=== PATIENT | male | born 1965 | race Caucasian/White ===

== ENCOUNTER 2017-03-28 06:58 | Day surgery (SDC) | payer BC, OTHER ==
[~2017-03-28] VITALS: Ht 172.7 cm; Wt 103.9 kg
[~2017-03-28 06:58] MED LIST: AMBIEN10 M1 PO; AMITRIPTYLINE H10 MG PO; COLACE100 MG PO; DURAGESIC50 MCG TD; FERROUS SULFAT325 MG PO; KADIAN30 MG PO; KADIAN60 MG PO; MOBIC15 MG PO; MOBIC7.5 MG PO; MORPHABOND ER15 MG PO; OXYCODONE HCL15 MG PO; OXYCODONE HCL20 M1 PO; OXYCODONE-ACET1 EACH PO; OXYCODONE5 MG PO; PREVALITE POWD231 GM PO; PRINIVIL40 MG PO; PROMETHAZINE HC25 M1 PO; TUMS SMOOTHIES300 MG PO; UNISOM50 MG PO; XARELTO10 MG PO; ZESTRIL40 MG PO; [UNRECOGNIZED DRUG - OTHER] MC
== END 2017-03-28 08:59 | disposition home or self-care (01) ==
LOC: PAIN 06:58 → SDC 07:45 → PAIN 07:45
PROC: 015B3ZZ Destruction of Lumbar Nerve, Percutaneous Approach (ICD-10-PCS; principal; 2017-03-28)
DX: M47.816 Spondylosis without myelopathy or radiculopathy, lumbar region (principal); F41.9 Anxiety disorder, unspecified; G89.29 Other chronic pain; M43.06 Spondylolysis, lumbar region; M79.1 Myalgia; I10 Essential (primary) hypertension; M51.26 Other intervertebral disc displacement, lumbar region; R26.9 Unspecified abnormalities of gait and mobility; K44.9 Diaphragmatic hernia without obstruction or gangrene; E78.5 Hyperlipidemia, unspecified; E66.9 Obesity, unspecified; Z68.35 Body mass index [BMI] 35.0-35.9, adult
CPT/HCPCS: J1030; J2250; J3010; S0020

== ENCOUNTER 2017-04-04 06:59 | Day surgery (SDC) | payer BC, OTHER ==
[~2017-04-04] VITALS: Ht 172.7 cm; Wt 103.9 kg
== END 2017-04-04 09:14 | disposition home or self-care (01) ==
LOC: PAIN 06:59 → SDC 07:45 → PAIN 07:45
PROC: 015B3ZZ Destruction of Lumbar Nerve, Percutaneous Approach (ICD-10-PCS; principal; 2017-04-04)
DX: M47.816 Spondylosis without myelopathy or radiculopathy, lumbar region (principal); F41.9 Anxiety disorder, unspecified; G89.29 Other chronic pain; M17.11 Unilateral primary osteoarthritis, right knee; M43.06 Spondylolysis, lumbar region; M54.5 Low back pain; M79.1 Myalgia; I10 Essential (primary) hypertension; R26.9 Unspecified abnormalities of gait and mobility; K44.9 Diaphragmatic hernia without obstruction or gangrene; E78.5 Hyperlipidemia, unspecified; E66.9 Obesity, unspecified; Z68.35 Body mass index [BMI] 35.0-35.9, adult; Q05.7 Lumbar spina bifida without hydrocephalus; Z87.891 Personal history of nicotine dependence
CPT/HCPCS: J1030; J2250; J3010; S0020

== ENCOUNTER 2017-04-21 15:57 | Emergency (ER) | payer BC, OTHER ==
[~2017-04-21] VITALS: Ht 172.7 cm; Wt 101.0 kg
[2017-04-21 16:33] LABS: HEMATOCRIT 45.5 % (38.0-50.0); MCH 30.9 PG (29.0-34.0); MCHC 34.5 G/DL (30.0-36.0); MCV 89.6 FL (86-99); MEAN PLAT.VOLUME 10.2 uM^3 (9.0-12.4); PLATELET COUNT 232 K/uL (156-360); RBC DIS.WIDTH-CV 12.9 % (11.8-14.6); RBC DIS.WIDTH-SD 42.5 % (39-53); RED BLOOD COUNT 5.08 M/uL (4.00-5.50); WHITE BLOOD COUNT 8.6 K/uL (4.1-10.2)
[2017-04-21 16:45] LABS: CHLORIDE 111 mEq/L (99-109); POTASSIUM 4.3 mEq/L (3.7-5.4); SODIUM 142 mEq/L (136-147)
[2017-04-21 16:47] LABS: GLUCOSE 104 mg/dL (70-99)
[2017-04-21 16:48] LABS: ANION GAP 8 MEQ/L (2-14)
[2017-04-21 16:50] LABS: GFR ESTIMATE (CALCULATED) > 59 mL/min/
[2017-04-21 16:51] LABS: UREA NITROGEN (BUN) 16 mg/dL (9-23)
[2017-04-21 17:01] LABS: TROP-I INTERPRETATION NEGATIVE; TROPONIN-I < 0.01 ng/mL (0.0-0.30)
[2017-04-21 20:20] LABS: TROP-I INTERPRETATION NEGATIVE; TROPONIN-I < 0.01 ng/mL (0.0-0.30)
[2017-04-21] MEDS ORDERED: BENTYL20 MG PO (20:55)
[2017-04-21] MEDS ORDERED: ZANTAC150 MG PO (20:55)
[2017-04-21] MEDS ORDERED: OMEPRAZOLE20 MG PO (20:56)
[2017-04-21 21:05] VITALS: BP 135/85
== END 2017-04-21 21:07 | disposition home or self-care (01) ==
LOC: EME 15:57
PROVIDERS: Nurse Practitioner Family
DX: K44.9 Diaphragmatic hernia without obstruction or gangrene (principal); R10.13 Epigastric pain; R07.89 Other chest pain; K21.9 Gastro-esophageal reflux disease without esophagitis; Z87.891 Personal history of nicotine dependence
CPT/HCPCS: 71020; 74020; 80048; 84484; 85027; 93005; 99281; 99284

== ENCOUNTER 2017-12-03 14:29 | Emergency (ER) | payer OTHER ==
[~2017-12-03] VITALS: Ht 172.7 cm; Wt 105.9 kg
[~2017-12-03 14:29] MED LIST changes: +BENTYL20 MG PO; +OMEPRAZOLE20 MG PO; +ZANTAC150 MG PO
[2017-12-03] MEDS ORDERED: OXYCODONE HCL10 MG PO (16:37)
[2017-12-03] MEDS ORDERED: MORPHINE SULFAT15 M1 PO (16:37)
[2017-12-03 16:46] VITALS: BP 142/86
== END 2017-12-03 16:48 | disposition home or self-care (01) ==
LOC: EME 14:29
DX: M54.9 Dorsalgia, unspecified (principal); G89.29 Other chronic pain; Z76.0 Encounter for issue of repeat prescription; I10 Essential (primary) hypertension; Q05.9 Spina bifida, unspecified; Z79.891 Long term (current) use of opiate analgesic
CPT/HCPCS: 99281; 99283